=== PATIENT | male | born 1995 | race Two or more races ===

== ENCOUNTER 2019-05-09 08:44 | Emergency (ER) | payer OTHER ==
[~2019-05-09] VITALS: Ht 172.7 cm; Wt 81.6 kg
[2019-05-09 08:54] VITALS: BP 121/71
--- NOTE | 2019-05-09 09:04 | NUR ---
ED Nurse Note: Patient presents to ER due to laceration to left index finger at work; Patient was cutting meat with knife. Approximately 2cm laceration to the distal of left index finger with bleeding noted. Cap refill < 3 sec. Sensation remained intact. Applied pressure dressing.
[2019-05-09] MEDS ORDERED: Lidocaine 1% Plain 30 ml INJ ONE (09:15)
[2019-05-09] MEDS ORDERED: IBUPROFEN600 MG ORAL (10:12)
[2019-05-09] MEDS ORDERED: Bacitracin Oint UD TOPIC ONE ×2 (10:15→10:30)
[2019-05-09 10:32] VITALS: BP 120/70
--- NOTE | 2019-05-09 10:33 | NUR ---
ER DISCHARGE NOTE: Patient is cleared to be discharged per ERMD, pt is aox4, on room air, with stable vital signs. pt was given dc and prescription instructions, pt was able to verbalize understanding, pt id band removed. pt is able to ambulate with steady gait. pt took all belongings.
--- NOTE | 2019-05-09 12:27 | Emergency Room Report ---
History of Present Illness General Chief Complaint: Laceration Source: Patient Present Illness HPI Patient presents with reports of cut on the left index finger after cutting at work Has localized discomfort to the distal finger 4 out of 10 worse with touch patient able to flex and extend the finger otherwise Denies any other injuries denies any wrist pain denies any elbow pain Patient is up-to-date with immunizations Allergies: Coded Allergies: No Known Allergies (Unverified , 05/09/19) Patient History Past Medical History: see triage record Pertinent Family History: none Reviewed Nursing Documentation: PMH: Agreed; PSxH: Agreed Nursing Documentation-PMH Past Medical History: No Stated History Review of Systems All Other Systems: negative except mentioned in HPI Physical Exam Vital Signs Date Time Temp Pulse Resp B/P (MAP) Pulse Ox O2 Delivery O2 Flow Rate FiO2 05/09/19 08:54 97.9 83 16 121/71 (88) 95 Room Air Sp02 EP Interpretation: reviewed, normal General Appearance: well appearing, no apparent distress Head: normocephalic, atraumatic Eyes: bilateral eye PERRL, bilateral eye EOMI ENT: normal pharynx Neck: supple Respiratory: lungs clear Cardiovascular #1: no edema Gastrointestinal: non tender, soft Genitourinary: no CVA tenderness Musculoskeletal: other - Approximately 1 cm laceration palmar aspect of distal left index finger patient able to flex and extend against resistance Neurologic: alert, oriented x3 Skin: other - As above Lymphatic: no adenopathy Procedures Splinting Splinting : Consent: Verbal Location: Left index finger Pre-Made Type: metal Splint: finger Pre-Proc Neuro Vasc Exam: normal Post-Proc Neuro Vasc Exam: normal Patient Tolerated: Well Complications: None Laceration/Wound Repair Laceration/Wound Repair : Consent: Verbal Wound Location: upper extremity Wound's Depth, Shape: into muscle Wound Length (cm): 1 Wound Explored: clean Irrigated w/ Saline (ccs): 300 Betadine Prep?: Yes Volume Anesthetic (ccs): 3 Wound Debrided: minimal Wound Repaired With: sutures Suture Size/Type: 5:0 Number of Sutures: 6 Layer Closure?: No Sterile Dressing Applied?: Yes Splint Applied?: Yes Patient Tolerated: Well Complications: None Medical Decision Making Diagnostic Impression: Primary Impression: Laceration ER Course Given the history exam the area is irrigated and evaluated closely no obvious sign of tendon involvement patient has full flexion extension intact sutures are placed as noted above patient tolerated well and is stable for close outpatient follow-up Last Vital Signs Date Time Temp Pulse Resp B/P (MAP) Pulse Ox O2 Delivery O2 Flow Rate FiO2 05/09/19 10:32 98.0 78 18 120/70 99 Room Air Status: improved Disposition: HOME, SELF-CARE Condition: Improved Scripts Ibuprofen* (MOTRIN*) 600 Mg Tablet 600 MG ORAL Q8H PRN for For Pain, #20 TAB 0 Refills Prov: Gino Christiansen DO 05/09/19 Patient Instructions: Laceration Care, Adult Additional Instructions: Patient is provided with the discharge instructions notified to follow up with Worker's Comp. doctor in the next 2-3 days otherwise return to the er with any worsening symptoms. Please note that this report is being documented using [employer] technology. This can lead to erroneous entry secondary to incorrect interpretation by the dictating instrument. Gino Christiansen DO May 09, 2019 12:27
== END 2019-05-09 10:36 | disposition home or self-care (01) ==
LOC: EMR 09:10
DX: S61.211A Laceration without foreign body of left index finger without damage to nail, initial encounter (principal); W45.8XXA Other foreign body or object entering through skin, initial encounter; Y92.9 Unspecified place or not applicable; Y99.0 Civilian activity done for income or pay
CPT/HCPCS: 12041; 29130; 99283; J2001